=== PATIENT | male | born 1940 | race Caucasian/White ===

== ENCOUNTER 2019-06-18 05:40 | Outpatient (RCR) | payer MEDICARE, BC, SELFPAY ==
[2019-06-11] MEDS: sodium chloride 0.9% 500 ML 100 ML IV (13:02)
[2019-06-11] MEDS: acetaminophen 325 mg Tablet 650 MG PO (13:02)
[2019-06-11 13:50] LABS: Alanine Aminotransferase 16 U/L (0-41); Albumin Level 3.7 g/dL (3.5-5.2); Alkaline Phosphatase 97 IU/L (40-130); Blood Urea Nitrogen 30 mg/dL (8-23); Calcium 8.8 mg/dL (8.5-10.5); Carbon Dioxide 30 mmol/L (22-29); Chloride 101 mmol/L (98-107); Globulin 2.4 g/dL (1.3-4.6); Glucose 100 mg/dL (65-115); Sodium 140 mmol/L (136-145); Total Protein 6.1 g/dL (6.6-8.7)
[2019-06-11 13:52] LABS: Basophils % 0.3 %; Eosinophils # 0.2 10^3/uL (0.0-0.8); Eosinophils % 1.7 %; Hematocrit 30.2 % (42.0-52.0); Hemoglobin 10.1 g/dL (11.7-16.6); Lymphocytes % 9.7 %; Mean Corpuscular HGB Conc 33.4 g/dL (30.0-36.0); Mean Corpuscular Volume 113.5 fL (80-94); Mean Platelet Volume 10.2 fL (7.4-10.4); Monocytes # 1.2 10^3/uL (0.2-0.9); Monocytes % 12.3 %; Neutrophils # 7.4 10^3/uL (1.8-7.7); Neutrophils % 74.5 %; Nucleated Red Blood Cells # 0.1 /100WBC; Nucleated Red Blood Cells % 0.5 %; Platelet Count 629 10^3/cmm (130-400); Red Blood Count 2.66 10^6/uL (4.1-5.3); Red Cell Distribution Width 22.3 % (12.1-15.1)
[2019-06-11 14:53] LABS: Aspartate Amino Transferase 31 U/L (0-40); Lactate Dehydrogenase 368 U/L (135-225)
[2019-06-11 15:18] LABS: Slide Review Slide Review Perform
[2019-06-17 12:54] LABS: Basophils % 0.3 %; Eosinophils # 0.1 10^3/uL (0.0-0.8); Eosinophils % 0.8 %; Hematocrit 30.3 % (42.0-52.0); Hemoglobin 10.4 g/dL (11.7-16.6); Lymphocytes # 1.3 10^3/uL (0.8-4.8); Mean Corpuscular HGB Conc 34.3 g/dL (30.0-36.0); Mean Corpuscular Hemoglobin 39.2 pg (28.0-34.0); Mean Corpuscular Volume 114.3 fL (80-94); Mean Platelet Volume 10.6 fL (7.4-10.4); Monocytes # 0.8 10^3/uL (0.2-0.9); Monocytes % 6.3 %; Neutrophils # 9.9 10^3/uL (1.8-7.7); Neutrophils % 80.7 %; Nucleated Red Blood Cells % 0 %; Platelet Count 565 10^3/cmm (130-400); Red Blood Count 2.65 10^6/uL (4.1-5.3); White Blood Count 12.2 10^3/uL (4.0-10.0)
[2019-06-17 13:07] LABS: Alanine Aminotransferase 14 U/L (0-41); Albumin Level 3.3 g/dL (3.5-5.2); Alkaline Phosphatase 83 IU/L (40-130); Anion Gap 15.3 (5-19); Aspartate Amino Transferase 19 U/L (0-40); Blood Urea Nitrogen 19 mg/dL (8-23); Calcium 8.9 mg/dL (8.5-10.5); Carbon Dioxide 28 mmol/L (22-29); Chloride 104 mmol/L (98-107); Globulin 3.2 g/dL (1.3-4.6); Glucose 146 mg/dL (65-115); Lactate Dehydrogenase 317 U/L (135-225); Potassium 3.3 mmol/L (3.5-5.1); Sodium 144 mmol/L (136-145); Total Bilirubin 0.7 mg/dL (0.15-1.2); Total Protein 6.5 g/dL (6.6-8.7)
[2019-06-18] MEDS: acetaminophen 325 mg Tablet 650 MG PO (11:40)
[2019-06-18] MEDS: sodium chloride 0.9% 500 ML 75 ML IV (11:50)
--- NOTE | 2019-06-18 12:51 | ONC FU_ITS ---
[facility] Patient Note Patient: Italo Bell Unit #: [id number]: [id number] Dictated By: Aggie MontoyaDate of Visit: Jun 18, 2019 Onc MED Follow-Up/Prog Note Chief Complaint: Lymphoma/anemia. 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 In December 2014 he was found to have a mild bicytopenia with his CBC showing hemoglobin low at 11.6 g, white blood cell count 6500, and platelet count 84,000. The red cell indices were mildly hypchromic/microcytic. The differential included 31 % neutrophils, 59% lymphocytes, 6% monocytes, and 1% eosinophils. The serum iron was low at 35 ug/dL with transferrin saturation 12%. Ferritin was normal at 111 ng/mL. Comprehensive metabolic profile at that time was unremarkable except for borderline renal function with BUN 25 and creatinine 1.2 mg /dL. The bilirubin level and liver enzymes were normal. B12 level was normal at 518 pg/mL. Dr Rogers had seen him initially on 03/01/2015. His CBC at that time showed hemoglobin 11.8 g, white blood cell count 5500, and platelet count 98,000. Comprehensive metabolic profile was unremarkable. LDH level was just slightly elevated at 229/225 units/L. Sedimentation rate was elevated at 61 mm/h with CRP also elevated at 6.2 mg/L. Protein electrophoresis showed an IgM kappa monoclonal protein which quantitated at 0.35 g/dL. TSH was slightly elevated 5.63 mIU/mL. At that time, he was noted to have a significantly enlarged spleen. This was confirmed with CT scan of the abdomen/pelvis which showed marked splenomegaly with a span of 29.9 cm. There were no focal lesions noted, and there was no associated lymphadenopathy. He did have an incidental finding a 4.9 cm abdominal aortic aneurysm below the origin of the renal arteries. His subsequent evaluation included bone marrow aspiration/biopsy on 03/11/2015. The bone marrow was hypercellular and 90-100% cellularity. There was limited dyserythropoiesis noted. Iron stores were noted to be absent. There was a significant increase in the lymphoid population, measuring up to 80% of the differential in some ross. Flow cytometry showed a monotypic B-cell population comprising 25-30% of the total cells. These were positive for CD19, CD20, CD22 and FMC7, there was partial positivity for CD25. They were negative for CD5, CD10, and CD23. The phenotype was felt to favor marginal zone lymphoma. The standard chromosome analysis was normal. 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 Overall, by clinical evaluation his presentation was consistent with splenic marginal zone lymphoma. He was treated with a standard 4 week course of single agent Rituxan, which he completed in March 2015. He tolerated the treatment with no adverse effects. At that time he also was treated with Injectafer for the iron deficiency, as it had not corrected with oral iron. Restaging CT abdomen/pelvis on 07/09/2015 continued to show marked splenomegaly. Other findings included chronic emphysema and extensive atherosclerotic peripheral vascular changes including an infrarenal abdominal aortic aneurysm measuring up to 5.1 x 5.2 cm and extending for vertical length of 8 cm and aneurysmal dilatation of the aorta at the thoracic abdominal junction measuring 4.1 cm. He continued to have significant leukopenia and thrombocytopenia. During further evaluation for the splenectomy he was found to have significant coronary artery disease, severe enough that coronary artery bypass surgery was recommended. His evaluation at that point included coagulation studies, which showed a significantly prolonged prothrombin time/INR. 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 He was then referred to [facility] for further evaluation/management. He was seen there by Dr. Shilpa Costa and he subsequently underwent a course of treatment with 4 cycles of bendamustine/rituximab, which he completed in February 2016. He then underwent splenectomy in June 2016. The procedure was complicated by splenic vein thrombosis, for which he began anticoagulation with apixaban. Pathology on the spleen showed extramedullary hematopoiesis and no evidence of lymphoma. His repeat bone marrow aspiration/biopsy at that time showed no evidence of lymphoma. In July 2016 he underwent coronary angioplasty/stent, and in August 2016 he underwent repair of the abdominal aortic aneurysm. His other medical illnesses have been limited to degenerative arthritis, hypothyroidism, and benign prostatic hypertrophy. He had smoked in the past, but he quit more than 20 years ago. INTERIM HISTORY: On 10/07/2018 he was admitted to the hospital with severe anemia, hemoglobin 7.6 g. His laboratory studies were consistent with autoimmune hemolytic anemia with total bilirubin elevated at 3.5 mg/dL, LDH elevated at 412/225 U/L, and haptoglobin 10 mg/dL. His direct antibody test showed a positive cold antibody screen. He was transfused 2 units PRBC. He was then admitted to [facility] on 10/10/2018. His clinical course at that time was further complicated by congestive heart failure. His echocardiogram showed severe left ventricular systolic dysfunction with ejection fraction by echocardiogram estimated at 22 to 27%. He began on steroid therapy. Repeat bone marrow aspiration/biopsy on 10/10/2018 showed no evidence of lymphoma or MDS. He improved clinically on steroid therapy, and during subsequent follow-up he was able to taper his prednisone dosage. His further management through [facility] included ICD placement in January 2019. He also underwent left carotid endarterectomy. As of his follow-up visit on 03/06/2019 his hemoglobin was stable at 13.7 g on 10 mg of prednisone daily. On 06/03/2019 he was admitted to [facility] with recurrence of anemia, hemoglobin having dropped to 7.5 g. His studies were again consistent with autoimmune hemolytic anemia with slightly elevated total bilirubin, LDH elevated to 522/250 units/L, and haptoglobin < 10 mg/dL. He restarted prednisone at 80 mg daily, and he also began a standard 4-week course of rituximab with his week 1 rituximab infusion administered there on 06/03/2019. His clinical course was again complicated by acute on chronic systolic heart failure, by atrial fibrillation with RVR, and by acute on chronic renal failure. His recent echocardiogram had shown improvement in the left ventricular ejection fraction to 49%. However, he was noted on TTE to have left ventricular thrombus, for which he continued anticoagulation with apixaban 5 mg twice daily. Mr. Bell is here today for follow-up. He received his second dose of rituximab on 06/11/2019. He has tolerated it well. He is very jovial today. He denies any new concerns. He states he continues to have some lower extremity edema but had been taking Lasix 40 mg daily and the edema is much better. He is not taking any oral potassium supplements and states he just does not want to take another pill . He did start decreasing his prednisone at 40 mg starting today. He will decrease it again in a week as he does have a tapering schedule. He states overall he feels better. His breathing is better. He denies any fever or chills. He denies any diarrhea. He states if anything he is tends to have more towards constipation although that is controlled. He denies any pain. His ECOG is 1. Past Medical History: Atrial fibrillation Autoimmune hemolytic anemia Benign prostatic hypertrophy Cardiomyopathy Carotid stenosis Chronic kidney disease Congestive heart failure Coronary artery disease Degenerative arthritis Marginal zone lymphoma Past Surgical History: Cartilage surgery on the right knee Excision of lipoma Plastic surgery for injury to right middle finger ICD placement in 2018 Left carotid endarterectomy in 2019 Abdominal aortic aneurysm repair in 2017 Coronary angioplasty/stent placement in 2016 Splenectomy in 2017 Colonoscopy in 2002 Allergies: No Known Allergies. Medications: Atorvastatin Calcium 1 Tablet (of 40 mg) Oral daily Atovaquone 10 mL (of 150 mg/10mL) Suspension Oral daily Eliquis 1 Tablet (of 5 mg) Oral b.i.d. HumaLOG Subcutaneous Lasix 1 Tablet (of 20 mg) Oral b.i.d. Loratadine 1 Tablet (of 10 mg) Oral daily Metoprolol Succinate ER 3 Tablet (of 25 mg) Tablet SR 24 HR Oral daily MiraLax Pack Oral PRN Multivitamin Adult 1 Tablet Oral daily Pantoprazole Sodium 1 Tablet (of 40 mg) Tablet, enteric coated Oral daily predniSONE 1 Tablet (of 40 mg) Oral daily PRN Tamsulosin HCl 1 (0.4 mg) Capsule Oral daily traMADol HCl 1 Tablet (of 50 mg) Oral q 6 hours PRN Vitamin C 1 (500 mg) Capsule Oral daily Family History: Mr. Bell's mother at age 83: CO, and coronary artery disease, and breast cancer. Mr. Bell's father at age 85: CO, and coronary artery disease, and prostate cancer. Both parents with heart disease, father at age 85 and mother at age 83. His father also had prostate cancer and his mother also had breast cancer. One brother with valvular heart disease. A sister in a farm accident. Social History: Mr. Bell is and he is retired. Mr. Bell quit smoking 23 years ago but had smoked 0.5 packs/day for 30 years. He has no history of drinking. Mr. Bell reports the following support systems: lives with spouse, significant other, family, or friends, lives in own house, supportive family/friends willing to assist with needs, and adequate transportation available for expected visits. His diet consists of regular meals. He indicates his activity level as: regular exercise. He has a history of smoking for 30 years, less than a pack of cigarettes daily. He quit smoking more than 20 years ago. He does not drink alcohol. Review Of Symptoms: Constitutional Denies fevers, chills, night sweats, excessive fatigue or weight loss. Allergic/Immunologic No reactions. Eyes Denies significant visual changes. No diplopia. No amaurosis. ENMT Denies changes in hearing, sore throat, mouth sores, difficulty or changes in swallowing ability, and/or sinus drainage. Endocrine No diabetes, or hormone replacement. Denies hot flashes or night sweats. Hematologic/Lymphatic Denies easy bleeding. The patient denies any tender or palpable lymph nodes. easy bruising. Respiratory Denies dyspnea on exertion, chest pain, cough or hemoptysis. Denies orthopnea. Cardiovascular Denies anginal chest pain, palpitations or orthopnea. Gastrointestinal Denies vomiting, diarrhea, GI bleeding, or constipation. Denies change in bowel habits and/or stool color, no heartburn or early satiety. Genitourinary (M) Denies hematuria, dysuria, increased frequency, urgency, hesitancy or incontinence. Musculoskeletal Lower extremity edema-improved with Lasix. No decreased range of motion. Integumentary Denies chronic rashes, inflammation, ulcerations or skin changes. Neurologic Denies headache, blurred vision, and no areas of focal weakness or numbness. Normal gait. No sensory problems. Psychiatric Denies insomnia, depression, scarlett or mood swings. Vital Signs: Performed on Jun 18, 2019 10:57 Height - 72.00 in Weight - 232.0 lbs (HIGH) BSA - 2.27 sq.m BMI - 31.47 (HIGH) Temperature - 97.5 F (LOW) Pulse - 81 /min Respiration - 22 /min BP - 93/61 mm(hg) O2 Sat - 100 % Pain - 0,1 - No physically strenuous activity, but ambulatory and able to carry out light or sedentary work (e.g. office work, light house work). (ECOG) Physical Examination: Constitutional Alert, oriented, no acute distress. Skin pink, warm and dry. Head Normocephalic; atraumatic. Eyes Conjunctivae and sclerae are clear and without icterus. Pupils are reactive and equal. ENMT Sinuses are nontender. No oral exudates, ulcers, masses, thrush or mucositis. Oropharynx clear. Tongue normal. Neck Supple without masses or thyromegaly. No jugular venous distension. Hematologic/Lymphatic No petechiae or purpura. No tender or palpable lymph nodes in the cervical, supraclavicular, or axillary area. Respiratory Lungs are clear to auscultation without rhonchi or wheezing. Cardiovascular Regular rate and rhythm of heart without murmurs,clicks, gallops or rubs. Abdomen Non-tender, non-distended, no masses, ascites. Good bowel sounds noted in all quads. No guarding or rebound tenderness. No pulsatile masses. Back/Spine Non-tender to palpation. Extremities No visible deformities, no cyanosis, clubbing or edema currently. Musculoskeletal No tenderness or swelling, normal range of motion without obvious weakness. Integumentary No rashes or lesions. Neurologic No sensory or motor deficits, normal cerebellar function, normal gait. Psychiatric Alert and oriented times three. Coherent speech. Verbalizes understanding of our discussions today. Laboratory:Test performed on Jun 11, 2019 12:58 LDH (Total) 368 U/L Sodium 140 mmol/L Potassium 4.0 mmol/L Chloride 101 mmol/L CO2 30 mmol/L Anion Gap 13.0 BUN 30 mg/dL Creatinine 1.4 mg/dL Cr Clearance (Est) 63.0700 mL/min Glucose 100 mg/dL Calcium 8.8 mg/dL Protein, Total 6.1 g/dL Albumin 3.7 g/dL Globulin 2.4 g/dL Bilirubin, Total 1.0 mg/dL ALT (SGPT) 16 U/L AST (SGOT) 31 U/L Alkaline Phosphatase 97 IU/L WBC 10.0 10 3/uL RBC 2.66 10 6/uL HGB 10.1 g/dL HCT 30.2 % MCV 113.5 fL MCH 38.0 pg MCHC 33.4 g/dL RDW 22.3 % Platelet Count 629 10 3/cmm MPV 10.2 fL Neutrophils 7.4 10 3/uL Lymphocytes 1.0 10 3/uL Monocytes 1.2 10 3/uL Eosinophils 0.2 10 3/uL Basophils 0.0 10 3/uL Neutrophil % 74.5 % Lymphocyte % 9.7 % Monocyte % 12.3 % Eosinophil % 1.7 % Basophils % 0.3 % CBC Slide Review Slide Review Perform Test performed on Jun 03, 2019 04:02 Ferritin 1575 ng/mL Folate 20 ng/mL % Iron Saturation 33 % Iron, Total 70 mcg/dL TIBC 209 mcg/dL Bilirubin, Direct 0.4 mg/dL Haptoglobin 10.0 mg/dL PT 14.2 sec INR 1.3 Impression: 1. Patient with splenic marginal zone lymphoma. He had associated pancytopenia. He completed a standard 4 week course of single agent Rituxan on 04/22/2015. He tolerated the treatment well. 2. 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 The clinical significance of that finding at this point is uncertain. 3. He also had iron deficiency anemia which failed to respond to oral iron. He was given parenteral iron replacement with Injectafer. 4. He had symptomatic improvement following the Rituxan and parenteral iron replacement. However, he continued to have mild to moderate leukopenia and thrombocytopenia, and he continued to have a markedly enlarged spleen. 5. Restaging CT scans also showed evidence of infrarenal abdominal aortic aneurysm. 6. Further evaluation in preparation for splenectomy showed evidence of significant coronary artery disease, severe enough that coronary artery bypass surgery was recommended. 7. His screening coagulation studies showed markedly prolonged prothrombin time. 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 8. He then had further treatment with 4 cycles of bendamustine/rituximab, completed in February 2016. 9. On 06/27/2016 he underwent splenectomy for persistent splenomegaly and cytopenias. Pathology on the spleen showed no evidnece of lymphoma and his repeat bone marrow aspiraton and biopsy were also negative for lymphoma. 10. He underwent coronary angioplasty/stent placement in July 2016. 11. He underwent repair of abdominal aortic aneurysm in August 2016. 12, In September 2018 he presented with autoimmune hemolytic anemia due to a cold autoantibody. Bone marrow aspiration/biopsy showed no evidence of lymphoma and no evidence of MDS. The anemia responded to steroid therapy. 13. His clinical course was further complicated by cardiomyopathy and congestive heart failure. His other medical illnesses include: 14. Degenerative arthritis. 15. Hypothyroidism. 16. Benign prostatic hypertrophy. On 06/03/2019 he was admitted to [facility] with recurrence of autoimmune hemolytic anemia. His clinical course was further complicated by congestive heart failure, atrial fibrillation with rapid ventricular response, and acute on chronic renal failure. He also was found on TTE to have a left ventricular thrombus, for which he is on anticoagulation with apixaban. During the hospitalization he restarted steroid therapy with prednisone 80 mg daily and he began a standard 4-week course of rituximab. He received his week 1 rituximab infusion on 06/03/2019. He tolerated it well. At this point he is showing symptomatic improvement, though he still has significant fluid retention. Plan: 1. proceed with week 3/4 rituximab at 375 mg/m??? by IV infusion. 2. He continues prednisone but dose has decreased to 40 mg daily starting today. He has a tapering schedule. 3. He continues anticoagulation with apixaban 5 mg bid for left ventricular thrombus. He also has a hx of afib. 4. Labs from June 17, 2019 were reviewed in detail and discussed with Mr. Bell and a copy was given to him. WBC 12.2, hemoglobin 10.4, platelets of 565,000 ANC is 9900 creatinine is 1.0 potassium 3.3 LFTs are normal LDH is down to 317 (it was 522 on June 03, 2019). 5. I did speak with Mr. Bell regarding his hypokalemia. He states he wants to try to increase that with food rather than pills at this time. He states his swelling is much better so he will decrease his Lasix to 20 mg daily. 6. He has been using sliding scale for hyperglycemia related to the steroids. Per his recordings from 06/09/2019 till now. He has had to take 4 doses of insulin intermittently. He continues to check his glucose 3 times a day. 7. We will plan for follow-up in 1 week with CBC CMP and LDH. He will be due for week 4 of 4 rituximab at that time. 8. Mr. Bell was instructed to contact us in the interim should questions or problems arise. Signed By: Aggie Montoya-, [facility] Ryan Rogers MD <<Signature on File>>
== END 2019-06-21 23:59 | disposition home or self-care (01) ==
LOC: ONCMED 05:40
PROVIDERS: Internal Medicine Medical Oncology; Family Provider Physician Assistant Medical; PCP Physician Assistant Medical; Visit Provider Nurse Practitioner
DX: Z51.12 Encounter for antineoplastic immunotherapy (principal); C88.4 Extranodal marginal zone B-cell lymphoma of mucosa-associated lymphoid tissue [MALT-lymphoma]; R73.9 Hyperglycemia, unspecified; T38.0X5A Adverse effect of glucocorticoids and synthetic analogues, initial encounter; I25.10 Atherosclerotic heart disease of native coronary artery without angina pectoris; M19.90 Unspecified osteoarthritis, unspecified site; E03.9 Hypothyroidism, unspecified; N40.0 Benign prostatic hyperplasia without lower urinary tract symptoms; Z87.891 Personal history of nicotine dependence; I50.22 Chronic systolic (congestive) heart failure; I48.91 Unspecified atrial fibrillation; N18.9 Chronic kidney disease, unspecified; D59.1 Other autoimmune hemolytic anemias; E78.5 Hyperlipidemia, unspecified; Z79.899 Other long term (current) drug therapy; F41.8 Other specified anxiety disorders; E87.6 Hypokalemia; Z79.52 Long term (current) use of systemic steroids; Z79.01 Long term (current) use of anticoagulants; Z95.5 Presence of coronary angioplasty implant and graft; Z95.810 Presence of automatic (implantable) cardiac defibrillator
CPT/HCPCS: 36415; 80053; 83010; 83615; 85025; 85045; 96367; 96413; 96415; 99214; 99215; J1200; J7040; J9312

== ENCOUNTER 2019-07-07 10:05 | Outpatient (RCR) | payer MEDICARE, BC, SELFPAY ==
[2019-06-24 12:22] LABS: Basophils # 0.1 10^3/uL (0.0-0.1); Basophils % 0.7 %; Eosinophils # 0.3 10^3/uL (0.0-0.8); Eosinophils % 3.2 %; Hematocrit 33.4 % (42.0-52.0); Lymphocytes # 1.5 10^3/uL (0.8-4.8); Lymphocytes % 18.3 %; Mean Corpuscular HGB Conc 32.9 g/dL (30.0-36.0); Mean Corpuscular Hemoglobin 37.2 pg (28.0-34.0); Mean Corpuscular Volume 112.8 fL (80-94); Mean Platelet Volume 10.3 fL (7.4-10.4); Monocytes # 0.6 10^3/uL (0.2-0.9); Neutrophils # 5.8 10^3/uL (1.8-7.7); Neutrophils % 69.1 %; Nucleated Red Blood Cells % 0.2 %; Platelet Count 472 10^3/cmm (130-400); Red Blood Count 2.96 10^6/uL (4.1-5.3); Red Cell Distribution Width 17.9 % (12.1-15.1); White Blood Count 8.4 10^3/uL (4.0-10.0)
[2019-06-24 12:43] LABS: Alanine Aminotransferase 17 U/L (0-41); Albumin Level 3.7 g/dL (3.5-5.2); Alkaline Phosphatase 88 IU/L (40-130); Anion Gap 14.6 (5-19); Aspartate Amino Transferase 21 U/L (0-40); Blood Urea Nitrogen 22 mg/dL (8-23); Calcium 9.2 mg/dL (8.5-10.5); Carbon Dioxide 32 mmol/L (22-29); Chloride 102 mmol/L (98-107); Globulin 2.3 g/dL (1.3-4.6); Glucose 133 mg/dL (65-115); Lactate Dehydrogenase 293 U/L (135-225); Potassium 3.63; Sodium 145 mmol/L (136-145); Total Bilirubin 0.6 mg/dL (0.15-1.2)
[2019-06-25] MEDS: acetaminophen 325 mg Tablet 650 MG PO (10:45)
[2019-06-25] MEDS: sodium chloride 0.9% 500 ML 75 ML IV (10:45)
[2019-07-07 16:20] LABS: Basophils # 0.1 10^3/uL (0.0-0.1); Basophils % 0.5 %; Eosinophils # 0.4 10^3/uL (0.0-0.8); Hematocrit 42.2 % (42.0-52.0); Hemoglobin 13.4 g/dL (11.7-16.6); Lymphocytes # 2.2 10^3/uL (0.8-4.8); Lymphocytes % 18.9 %; Mean Corpuscular HGB Conc 31.8 g/dL (30.0-36.0); Mean Corpuscular Hemoglobin 34.4 pg (28.0-34.0); Mean Corpuscular Volume 108.2 fL (80-94); Mean Platelet Volume 11.2 fL (7.4-10.4); Monocytes # 1.2 10^3/uL (0.2-0.9); Neutrophils # 7.7 10^3/uL (1.8-7.7); Neutrophils % 66.3 %; Nucleated Red Blood Cells % 0 %; Platelet Count 384 10^3/cmm (130-400); Red Cell Distribution Width 16.2 % (12.1-15.1); White Blood Count 11.5 10^3/uL (4.0-10.0)
== END 2019-07-22 23:59 | disposition home or self-care (01) ==
LOC: ONCMED 10:05
PROVIDERS: Absent Provider Nurse Practitioner; Family Provider Physician Assistant Medical; PCP Physician Assistant Medical; Visit Provider Internal Medicine Medical Oncology
DX: D59.1 Other autoimmune hemolytic anemias (principal); J43.9 Emphysema, unspecified; I73.9 Peripheral vascular disease, unspecified; I25.10 Atherosclerotic heart disease of native coronary artery without angina pectoris; E03.9 Hypothyroidism, unspecified; N40.0 Benign prostatic hyperplasia without lower urinary tract symptoms; M19.90 Unspecified osteoarthritis, unspecified site; I50.22 Chronic systolic (congestive) heart failure; I48.91 Unspecified atrial fibrillation; N18.9 Chronic kidney disease, unspecified; Z79.899 Other long term (current) drug therapy; Z79.52 Long term (current) use of systemic steroids; Z95.1 Presence of aortocoronary bypass graft; Z95.5 Presence of coronary angioplasty implant and graft; Z87.891 Personal history of nicotine dependence; Z85.72 Personal history of non-Hodgkin lymphomas
CPT/HCPCS: 36415; 80053; 83010; 83615; 85025; 85045; 96367; 96413; 96415; 99214; J1200; J7040; J9312

== ENCOUNTER 2019-08-29 09:20 | Outpatient (RCR) | payer MEDICARE, BC, SELFPAY ==
[2019-08-22 14:38] LABS: Basophils # 0.1 10^3/uL (0.0-0.1); Basophils % 0.8 %; Eosinophils # 0.3 10^3/uL (0.0-0.8); Eosinophils % 2.3 %; Hematocrit 23.9 % (42.0-52.0); Hemoglobin 8.6 g/dL (11.7-16.6); Lymphocytes # 1.4 10^3/uL (0.8-4.8); Lymphocytes % 9.6 %; Mean Corpuscular Hemoglobin 41.5 pg (28.0-34.0); Mean Corpuscular Volume 115.5 fL (80-94); Mean Platelet Volume 10.4 fL (7.4-10.4); Monocytes # 1.3 10^3/uL (0.2-0.9); Monocytes % 9.1 %; Neutrophils # 11.2 10^3/uL (1.8-7.7); Neutrophils % 76.9 %; Nucleated Red Blood Cells # 0.5 /100WBC; Nucleated Red Blood Cells % 3.3 %; Platelet Count 547 10^3/cmm (130-400); Red Blood Count 2.07 10^6/uL (4.1-5.3); Red Cell Distribution Width 23.1 % (12.1-15.1); White Blood Count 14.5 10^3/uL (4.0-10.0)
[2019-08-22 16:27] LABS: Alanine Aminotransferase 15 U/L (0-41); Alkaline Phosphatase 104 IU/L (40-130); Anion Gap 15.7 (5-19); Aspartate Amino Transferase 25 U/L (0-40); Blood Urea Nitrogen 18 mg/dL (8-23); Calcium 9.6 mg/dL (8.5-10.5); Carbon Dioxide 29 mmol/L (22-29); Chloride 101 mmol/L (98-107); Globulin 2.4 g/dL (1.3-4.6); Glucose 138 mg/dL (65-115); Osmolality Calculated 293 mOsm/kg (285-295); Potassium 3.7 mmol/L (3.5-5.1); Sodium 142 mmol/L (136-145); Total Protein 6.4 g/dL (6.6-8.7)
[2019-08-29 13:33] LABS: Alanine Aminotransferase 18 U/L (0-41); Albumin Level 3.9 g/dL (3.5-5.2); Alkaline Phosphatase 90 IU/L (40-130); Anion Gap 14.3 (5-19); Aspartate Amino Transferase 21 U/L (0-40); Blood Urea Nitrogen 22 mg/dL (8-23); Calcium 9.8 mg/dL (8.5-10.5); Carbon Dioxide 30 mmol/L (22-29); Chloride 103 mmol/L (98-107); Globulin 2.3 g/dL (1.3-4.6); Glucose 99 mg/dL (65-115); Osmolality Calculated 295 mOsm/kg (285-295); Potassium 3.3 mmol/L (3.5-5.1); Sodium 144 mmol/L (136-145); Total Bilirubin 1.1 mg/dL (0.15-1.2); Total Protein 6.2 g/dL (6.6-8.7)
[2019-08-29 13:58] LABS: Basophils # 0.1 10^3/uL (0.0-0.1); Basophils % 0.5 %; Eosinophils # 0.2 10^3/uL (0.0-0.8); Eosinophils % 1.3 %; Hematocrit 29.5 % (42.0-52.0); Lymphocytes # 2.4 10^3/uL (0.8-4.8); Lymphocytes % 15.9 %; Mean Corpuscular HGB Conc 33.9 g/dL (30.0-36.0); Mean Corpuscular Hemoglobin 39.5 pg (28.0-34.0); Mean Corpuscular Volume 116.6 fL (80-94); Mean Platelet Volume 10.3 fL (7.4-10.4); Monocytes # 1.4 10^3/uL (0.2-0.9); Monocytes % 9.5 %; Neutrophils # 10.8 10^3/uL (1.8-7.7); Neutrophils % 71.7 %; Nucleated Red Blood Cells # 0.1 /100WBC; Nucleated Red Blood Cells % 0.7 %; Platelet Count 484 10^3/cmm (130-400); Red Blood Count 2.53 10^6/uL (4.1-5.3); Red Cell Distribution Width 23.9 % (12.1-15.1); White Blood Count 15.1 10^3/uL (4.0-10.0)
== END 2019-09-21 23:59 | disposition home or self-care (01) ==
LOC: ONCMED 09:20
PROVIDERS: Absent Provider Nurse Practitioner; Family Provider Physician Assistant Medical; PCP Physician Assistant Medical; Visit Provider Internal Medicine Medical Oncology
DX: C88.4 Extranodal marginal zone B-cell lymphoma of mucosa-associated lymphoid tissue [MALT-lymphoma] (principal); D50.9 Iron deficiency anemia, unspecified; D59.1 Other autoimmune hemolytic anemias; D61.818 Other pancytopenia
CPT/HCPCS: 36415; 80053; 85025